=== PATIENT | female | born 1965 | race Caucasian/White ===

== ENCOUNTER 2020-11-22 17:27 | Observation (INO) | payer MEDICARE ==
[~2020-11-22] VITALS: Ht 167.6 cm; Wt 122.7 kg
[2020-11-22] MEDS ORDERED: SYNTHROID175 MCG PO (17:40)
[2020-11-22] MEDS ORDERED: ZOLOFT100 MG PO (17:41)
[2020-11-22] MEDS ORDERED: PROPRANOLOL HCL20 MG PO (17:42)
[2020-11-22] MEDS ORDERED: SEROQUEL XR150 MG PO (17:43)
[2020-11-22] MEDS ORDERED: LAMICTAL150 M1 PO (17:44)
[2020-11-22] MEDS ORDERED: HYDROCODON-ACE1 EA10 PO (17:44)
[2020-11-22] MEDS ORDERED: LIPITOR20 MG PO (17:44)
[2020-11-22] MEDS ORDERED: XANAX1 MG PO (17:45)
[2020-11-22 18:11] LABS: BASOPHILS 0.4 % (0-2); EOSINOPHILS 2.2 % (0-7); HEMATOCRIT 40.1 % (36.0-48.0); HEMOGLOBIN 13.1 g/dL (12-16); LYMPHOCYTE ABS# 1.53 10x3/uL (1.18-3.74); LYMPHOCYTES 33.1 % (15-50); MCH 31.2 pg (26.0-34.0); MCHC 32.7 g/dL (31.0-37.0); MCV 95.5 fL (80.0-100.0); MEAN PLATELET VOLUME 10.1 fL (7.4-10.4); MONOCYTES 5.6 % (2-11); NEUTROPHIL ABS# 2.71 10x3/uL (1.56-6.13); NEUTROPHILS 58.7 % (40-80); PLATELET COUNT 176 10x3/uL (130-400); RDW 12.5 % (11.5-14.5); WBC 4.6 10x3/uL (4.8-10.8)
[2020-11-22 18:27] LABS: CALC OSMOLALITY 283 mosm/kg (275-300); CALCIUM 8.7 mg/dL (8.5-10.1); CARBON DIOXIDE 28.7 mmol/L (21.0-32.0); CHLORIDE - SERUM 108 mmol/L (98-107); CREATININE - SERUM 0.8 mg/dL (0.6-1.3); GLUCOSE 102 mg/dL (74-106); SODIUM 142 mmol/L (136-145); UREA NITROGEN 15 mg/dL (7-18); eGFR NON AFRICAN AMERICAN 79 mL/min (90-120)
[2020-11-22 18:33] LABS: APTT 23.7 SECONDS (22.8-39.4)
[2020-11-22 18:34] LABS: INR 1.09 (0.85-1.17)
[2020-11-22 18:37] LABS: ALBUMIN 3.3 g/dL (3.4-5.0); ALKALINE PHOSPHATASE 128 U/L (30-120); ALT (SGPT) 17 U/L (10-68); BILIRUBIN - TOTAL 0.22 mg/dL (0.2-1.3); CKMB 0.6 U/L (0.0-3.6); CREATINE KINASE 43 UL (21-215); PROTEIN - SERUM 6.2 g/dL (6.4-8.2)
[2020-11-22 18:38] LABS: TROPONIN-I < 0.017 ng/mL (0.000-0.060)
[2020-11-22] MEDS ORDERED: LYRICA75 MG PO (23:02)
[2020-11-22] MEDS ORDERED: MELATONIN5 M3 PO (23:07)
[2020-11-22] MEDS ORDERED: ZANAFLEX4 MG PO (23:08)
[2020-11-22] MEDS ORDERED: COLACE100 MG PO (23:10)
[2020-11-22 23:19] VITALS: BP 139/95; BMI 43.6
[2020-11-22 23:23] VITALS: Ht 167.6 cm; Wt 122.7 kg
--- NOTE | 2020-11-23 | NUR ---
PT REPORTS SEVERE BACK PAIN, 10/10 TO BACK. REPORTS PAIN IS CHRONIC AND SHE RECENTLY RAN OUT OF MEDICATION FOR IT. INFORMED PT SHE HAS HAD ALL PAIN MEDICATIONS AVAILABLE AND THAT NEXT DOSE CANNOT BE GIVEN FOR ANOTHER HOUR. PT BEGAN SHOUTING, "I HURT! IT'S MY BACK AND MY CHEST!!" INFORMED PT SHE HAD ORDER OR SUBLINGUAL NITRO. PT REFUSED AND STATED, "I DON'T WANT NO NITRO, I'D RATHER LET MYSELF OF A HEART ATTACK IF I CAN'T GET ANYTHING FOR THIS PAIN." DR. SMITH PAGED AND NOTIFIED. NO CHANGES TO BE MADE TO PAIN MEDICATION. OTHER ORDERS ENTERED PER TELEPHONE. PT INFORMED SHE MUST WAIT THE HOUR UNTIL PAIN MEDICATION IS AVAILABLE. PT REPLIED, "JUST GET OUT IF YOU CAN'T DO ANYTHING FOR ME." CPOC
[2020-11-23] MEDS ORDERED: OS-CAL500 MG PO (00:09)
[2020-11-23] MEDS ORDERED: VITAMIN B-121000 MCG PO (00:09)
[2020-11-23] MEDS ORDERED: ASCORBIC ACID500 MG PO (00:10)
[2020-11-23] MEDS ORDERED: VITAMIN E200 UNI1 PO (00:11)
[2020-11-23] MEDS ORDERED: VITAMIN D325 MC1 PO (00:11)
[2020-11-23 01:25] LABS: CKMB 0.8 U/L (0.0-3.6); CREATINE KINASE 53 UL (21-215)
[2020-11-23 01:27] LABS: TROPONIN-I < 0.017 ng/mL (0.000-0.060)
[2020-11-23 04:00] VITALS: BP 103/61
[2020-11-23 05:00] LABS: BASOPHILS 0.3 % (0-2); EOSINOPHILS 3.7 % (0-7); HEMATOCRIT 34.1 % (36.0-48.0); HEMOGLOBIN 10.7 g/dL (12-16); IMMATURE GRANULOCYTES 0.3 % (0-5); LYMPHOCYTE ABS# 3.14 10x3/uL (1.18-3.74); LYMPHOCYTES 26.2 % (15-50); MCH 27.9 pg (26.0-34.0); MCHC 31.4 g/dL (31.0-37.0); MEAN PLATELET VOLUME 9.7 fL (7.4-10.4); MONOCYTES 11.7 % (2-11); NEUTROPHIL ABS# 6.94 10x3/uL (1.56-6.13); NEUTROPHILS 57.8 % (40-80); RBC 3.84 10x6/uL (4.00-5.40); RDW 15.6 % (11.5-14.5)
[2020-11-23 05:25] LABS: ALKALINE PHOSPHATASE 84 U/L (30-120); ALT (SGPT) 16 U/L (10-68); BILIRUBIN - TOTAL 0.35 mg/dL (0.2-1.3); CALC OSMOLALITY 282 mosm/kg (275-300); CALCIUM 8.1 mg/dL (8.5-10.1); CHLORIDE - SERUM 107 mmol/L (98-107); CREATINE KINASE 11 UL (21-215); CREATININE - SERUM 0.8 mg/dL (0.6-1.3); GLUCOSE 122 mg/dL (74-106); POTASSIUM - SERUM 3.9 mmol/L (3.5-5.1); PROTEIN - SERUM 5.5 g/dL (6.4-8.2); SODIUM 141 mmol/L (136-145); UREA NITROGEN 14 mg/dL (7-18); eGFR NON AFRICAN AMERICAN 79 mL/min (90-120)
[2020-11-23 05:30] LABS: ALBUMIN 2.2 g/dL (3.4-5.0); TROPONIN-I < 0.017 ng/mL (0.000-0.060)
[2020-11-23 05:38] LABS: MCV 88.8 fL (80.0-100.0); PLATELET COUNT 250 10x3/uL (130-400)
[2020-11-23 09:23] VITALS: BP 105/71
[2020-11-23 12:31] VITALS: BP 118/75
[2020-11-23 13:19] LABS: CREATINE KINASE 42 UL (21-215); TROPONIN-I < 0.017 ng/mL (0.000-0.060)
--- NOTE | 2020-11-23 15:56 | NUR ---
0700 - RECEIVED PT FROM OFFGOING NURSE RESTING QUIETLY IN BED WITH NO S/SX OF DISTRESS AT THIS TIME. 0800 - PT REQUESTING HOME MEDICATIONS THAT HAVE NOT BEEN RESTARTED. PHYSICIAN PAGED. ASKED PATIENT ABOUT PHARMACY OF CHOICE SO MEDICATION COULD BE RECONCILED. CALLED [facility] ON [address] (PT REPORTED FILLING PRESCRIPTIONS AT [facility] IN [place]) TO CONFIRM HOME MEDICATION LIST. SPOKE WITH DR SMITH ABOUT HOME MEDICATIONS, STATES THAT SHE WILL RESTART MEDICATIONS FROM HOME. 1400 - PT DEMANDING MEDICATIONS. EXPLAINED TO PT THAT MEDICATIONS HAVE NOT BEEN ORDERED BY . 1500 - PT DEMANDING MEDICATIONS. WHEN EXPLAINED AGAIN THAT THE DOCTOR MUST ORDER THE MEDICATIONS BEFORE THEY CAN BE GIVEN, PT BECAME AGITATED, DEMANDING TO SPEAK TO THE CHARGE NURSE OR DIAL PRINTER. 1520 - SPOKE WITH DR. SMITH AGAIN REGARDING PT HOME MEDICATIONS. STATES THAT SHE WILL PUT THE ORDERS IN. 1545 - HOME MEDICATIONS ADMINISTERED ORDERED. EXPLAINED TO PATIENT THAT MEDICATIONS THAT ARE TAKEN TWICE DAILY WILL BEGIN THIS EVVENIING. PT VERBALIZES NDERSTANDING.
[2020-11-23 16:49] VITALS: BP 130/64
[2020-11-23 20:33] VITALS: BP 135/75
[2020-11-24 00:14] VITALS: BP 103/53
--- NOTE | 2020-11-24 03:00 | NUR ---
I have reviewed this patient and I concur with the Shift Assessment completed by the Licensed Practical Nurse today this shift.
[2020-11-24 05:47] VITALS: BP 123/70
[2020-11-24 06:21] LABS: BASOPHILS 0.6 % (0-2); EOSINOPHILS 3.7 % (0-7); HEMATOCRIT 40.9 % (36.0-48.0); LYMPHOCYTE ABS# 1.15 10x3/uL (1.18-3.74); LYMPHOCYTES 33.1 % (15-50); MCH 30.8 pg (26.0-34.0); MCHC 31.8 g/dL (31.0-37.0); MEAN PLATELET VOLUME 10.1 fL (7.4-10.4); MONOCYTES 5.5 % (2-11); NEUTROPHIL ABS# 1.98 10x3/uL (1.56-6.13); NEUTROPHILS 57.1 % (40-80); RBC 4.22 10x6/uL (4.00-5.40); RDW 12.7 % (11.5-14.5)
[2020-11-24 06:40] LABS: WBC 3.5 10x3/uL (4.8-10.8)
[2020-11-24 06:41] LABS: MCV 96.9 fL (80.0-100.0); PLATELET COUNT 184 10x3/uL (130-400)
[2020-11-24 07:01] LABS: ALKALINE PHOSPHATASE 155 U/L (30-120); BILIRUBIN - TOTAL 0.23 mg/dL (0.2-1.3); CALC OSMOLALITY 286 mosm/kg (275-300); CARBON DIOXIDE 32.2 mmol/L (21.0-32.0); CHLORIDE - SERUM 109 mmol/L (98-107); CREATININE - SERUM 0.8 mg/dL (0.6-1.3); GLUCOSE 84 mg/dL (74-106); POTASSIUM - SERUM 3.7 mmol/L (3.5-5.1); SODIUM 145 mmol/L (136-145); UREA NITROGEN 11 mg/dL (7-18); eGFR NON AFRICAN AMERICAN 79 mL/min (90-120)
[2020-11-24 07:02] LABS: ALBUMIN 3.2 g/dL (3.4-5.0); ALT (SGPT) 58 U/L (10-68)
[2020-11-24 09:00] VITALS: BP 137/73
[2020-11-24 13:29] VITALS: BP 121/76
[2020-11-24 16:43] VITALS: BP 107/70
--- NOTE | 2020-11-24 20:30 | NUR ---
PATIENT REMOVED TELEMENTRY MONITOR. STATES SHE DOES NOT NEED IT ANYMORE. INSTRUCTED PATIENT IT WAS ORDERED BECAUSE SHE Came IN WITH CHEST PAIN. STATES YEAH I KNOW BUT THEY SAID IT WASNT CHEST PAIN IT WAS ANXIETY SO I DONT WANT IT ANYMORE.
--- NOTE | 2020-11-25 01:48 | NUR ---
I have reviewed this patient and I concur with the Shift Assessment completed by the Licensed Practical Nurse today this shift.
[2020-11-25 06:26] VITALS: BP 144/66
[2020-11-25 08:30] VITALS: BP 102/61
--- NOTE | 2020-11-25 09:26 | NUR ---
AAOX4 UPON ENTERING. ADMINISTERED MEDICATION, NO DIFFICULTIES. RESTING COMFORTABLY IN BED. ADMINISTERD PRN DILAUDID FOR REPORTED "10/10" PAIN. DENIES ANY NEEDS AT THIS TIME. ASSESSMENT PERFORMED. BED IN LOWEST POSITION, BED RAILS X2, CALL LIGHT WITHIN REACH. WILL CONTINUE POC.
--- NOTE | 2020-11-25 10:09 | NUR ---
SUDDENLY ANGRY AND WANTING TO LEAVE AMA, PAGED DR. WOODARD AND INFORMED HIM. WILL GET AMA PAPERWORK SIGNED.
--- NOTE | 2020-11-25 10:25 | NUR ---
REMOVED IV FROM LEFT AC, CATHETER TIP INTACT. COVERED WITH GAUZE AND TAPE. TOLERATED WELL. PT SIGNED AMA PAPERWORK, WALKED SELF TO ER.
--- NOTE | 2020-11-25 21:54 | MORECARE ---
CASE MANAGEMENT DISCHARGE SUMMARY PATIENT: GAYLE LAU UNIT: [id number] ADM DATE: 11/22/20 AGE: 55 : 65 SEX: F [facility] AUTHOR: PRATIMA,DOC PHYSICIAN: REFERRING PHYSICIAN: JANA SMITH MD DATE OF SERVICE: 11/25/20 Case Management Discharge Planning Summary DCP REVIEW SUMMARY ANTICIPATED D/C DATE: EXPECTED LOS : CASE STATUS: DCP Initiated INITIAL REVIEW: 11/22/2020 INITIAL REVIEWER: Desiree Angel FINAL DISCHARGE DISPOSITION: 07 : Left AMA or Discontinued Care FINAL REVIEWER: Desiree Angel FINAL REVIEW DATE: 11/25/2020 DCP Focus Questions & Answers - Added on: QUESTION: ANSWER : PATIENT: GAYLE LAU ENCOUNTER: [id number] MEDICAL RECORD#: [id number] ADMISSION DATE: 11/22/2020 DISCHARGE DATE: 11/25/2020 ATTENDING MD: : AGE: 55 MARITAL STATUS: X DC PLAN ID: [id number] FACILITY: [facility] PRINTED ON: 11/25/20 21:54 CT All edits/amendments must be made on the electronic document DICTATION DATE: 11/25/202152 CONTROLLER MECHANIC: AILIN 11/25/202152 RPT#: [id number] DC DATE:11/25/20 STATUS: DIS IN [facility] [address] [place] [address] END OF REPORT
== END 2020-11-25 10:28 | disposition home or self-care (01) ==
LOC: D.ER 17:27 → D.MS 20:10 → OBSVTIME 20:10 → D.MS 20:10
PROVIDERS: Emergency Medicine; Family Medicine; ADMIT Emergency Medicine; ATTEND Emergency Medicine
DX: R07.9 Chest pain, unspecified (principal); F41.9 Anxiety disorder, unspecified; R07.81 Pleurodynia; M54.5 Low back pain